=== PATIENT | male | born 1970 | race Caucasian/White ===

== ENCOUNTER → 2016-06-11 | Outpatient (CLI) | payer OTHER ==
--- NOTE | 2016-06-12 01:40 | REP ---
Clinical: Sciatica and acute right-sided back pain extending to the right lower extremity. Technique: Neutral and frog lateral views of the right hip. Findings: Age-related changes are appreciated without overt osteoarthritic degenerative disease. No osteophytosis or periarticular calcifications are appreciated. No acute or healed fracture/dislocation. Impression: Age-appropriate right hip radiographs. Signed by Dawson Asher MD 06/12/2016 01:31 A
--- NOTE | 2016-06-12 01:41 | REP ---
Clinical: Acute right-sided back pain . Technique: AP, lateral, bilateral oblique, and coned-down views. Findings: Alignment and lordosis is maintained. The vertebral bodies including transverse process and spinous processes are intact and normal for age . There is no evidence for acute fracture / compression injury or subluxation. No evidence for spondylolysis or spondylolisthesis. No significant degenerative change is noted. Impression: Normal, age-appropriate lumbosacral spine radiograph series. Signed by Dawson Asher MD 06/12/2016 01:32 A
== END ==
LOC: M LRY 19:36
PROVIDERS: ATTEND Physician Assistant
DX: M54.5 Low back pain (principal)

== ENCOUNTER → 2018-03-07 | Outpatient (REF) | payer OTHER ==
[2018-03-07 13:46] LABS: APPEARANCE, URINE CLEAR (CLEAR); BACTERIA, URINE AUTO NEGATIVE (NEGATIVE); BILIRUBIN, URINE AUTO NEGATIVE (NEGATIVE); BLOOD, URINE BLOOD 1+ (NEGATIVE); COLOR, URINE STRAW (YELLOW); GLUCOSE, URINE (UA) AUTO NEGATIVE (NEGATIVE); KETONE, URINE AUTO NEGATIVE (NEGATIVE); LEUKOCYTE ESTERASE, URINE AUTO NEGATIVE (NEGATIVE); MUCUS, URINE SMALL (NEGATIVE); NITRITE, URINE AUTO NEGATIVE (NEGATIVE); PROTEIN, URINE AUTO NEGATIVE (NEGATIVE); RBC, URINE AUTO 1 /HPF (0-3); SPECIFIC GRAVITY URINE AUTO 1.006 (1.002-1.035); SQUAMOUS EPITHELIAL CELL UR AU 0 /HPF (0-6); UROBILINOGEN, URINE AUTO 0.2 mg/dL (0.0-2.0); WBC, URINE AUTO 0 /HPF (0-3)
== END ==
LOC: M SMT 13:04
DX: R31.9 Hematuria, unspecified (principal)
CPT/HCPCS: 81001